=== PATIENT | male | born 1950 | race Caucasian/White ===

== ENCOUNTER 2016-11-23 17:39 | Inpatient (IN) | payer OTHER ==
[2016-11-23] VITALS (27 sets, daily range): BP systolic 93–128; BP diastolic 53–103
[~2016-11-23] VITALS: Ht 182.9 cm; Wt 97.6 kg
--- NOTE | ~2016-11-23 | HC ---
[facility] [place] [address] CONSULTATION Name: BELA PEREZ Room #: 447-P [facility] IN M.R.#: [id number] Admission: 11/23/16 Attend Phys: Seth Hayes DO Discharge: 11/26/16 Date of : 54 Report #: [id number] THIS REPORT FOR: //name// CC: MILI physician/PCP Seth Hayes DATE OF SERVICE: 11/23/2016 REASON FOR CONSULTATION: GI bleed. HISTORY OF PRESENT ILLNESS: The patient is a 66-year-old gentleman who presented to the Emergency Room for evaluation of hematemesis. He states he has vomited blood twice a day since Saturday. He denies rectal or abdominal pain. He states he has passed out a couple of times at home prior to presenting to the hospital. There has been no heartburn, dysphagia, or odynophagia. There has been no fever, chills, or sweats. He has had some melenic stools. The patient reports being diagnosed with non-Hodgkin's lymphoma on endoscopy. He states he was told he had a very large ulcer and that is how the diagnosis was made. The details of that workup are not available to me at this time. He apparently underwent endoscopy 3 weeks ago at the [facility]. He states he was told the ulcers were healing. He has undergone 6 chemotherapy treatments for the lymphoma. The last was about 2 weeks ago. PAST MEDICAL HISTORY: Diabetes mellitus; hypertension; renal cell carcinoma, status post nephrectomy; non-Hodgkin's lymphoma; port-A-Cath placement. ALLERGIES: None. MEDICATIONS: Metoprolol. Others are not available for review. The patient cannot recall the names. FAMILY HISTORY: Noncontributory. SOCIAL HISTORY: The patient denies tobacco or alcohol use. REVIEW OF SYSTEMS: No headaches. He has had some syncope as mentioned above. He has had some chest pain and shortness of breath. No dysuria, hematuria, or lower extremity edema. PHYSICAL EXAMINATION: GENERAL: The patient is awake and alert. He appears pale. He answers questions appropriately. VITAL SIGNS: Blood pressure 91/60, pulse is 130, respirations 18. He has been afebrile since admission. HEENT: The pupils . Extraocular movements are intact. No sclerous icterus or injection. [address] [address] CONSULTATION Name: BELA PEREZ Room #: 447-P [facility] IN M.R.#: [id number] Admission: 11/23/16 Attend Phys: Seth Hayes DO Discharge: 11/26/16 Date of : 54 Report #: [id number] CHEST: Clear to auscultation anteriorly. HEART: Exhibits tachycardia without murmur. No S3. ABDOMEN: Soft, active bowel sounds. No tenderness, distention, or hepatosplenomegaly. EXTREMITIES: Without significant edema. RECTAL: Not performed at this time. LABORATORY DATA: Hemoglobin on presentation was 6.0; MCV 88.8; white count 14,400. INR is 1.1. Lactate is 8.8, glucose 214, BUN 48, creatinine 1.2. fatty liver disease, possible steatohepatitis. IMPRESSION: 1. Acute upper gastrointestinal bleed. 2. Hypotension secondary to #1. 3. Anemia secondary to blood loss. 4. Non-Hodgkin's lymphoma involving the stomach. RECOMMENDATIONS: The patient has been transferred to the Intensive Care Unit. He is receiving packed red blood cells at this time. His blood pressure is actually improved as compared to the ER. I have recommended the patient undergo emergent upper endoscopy for further evaluation. I am hopeful we can at the minimum obtain a diagnosis. I informed the patient that it is often not possible to cauterize malignant tissue. This is simply not effective and can sometimes make matters worse. I explained to the patient that other options might include a mesenteric arteriography or possibly surgery. He understands and would like to proceed with endoscopy at this time. I have consulted Department of Anesthesia who have been kind enough to come in and help with this procedure. The patient has been started on a PPI drip. <ELECTRONICALLY SIGNED> By: William De Dios MD 11/28/16 1228 22 [id number] Juan Crowder MD /nt
--- NOTE | ~2016-11-23 | EKG ---
[address] [place] [address] ELECTROCARDIOGRAM REPORT Name: ZAC PEREZDEBRA Wilcox Room #: 447-P [facility] IN M.R.#: [id number] Admission: 11/23/16 Attend Phys: Seth Hayes DO Discharge: 11/26/16 Date of : 54 Report #: [id number] THIS REPORT FOR: //name// [facility] ED Test Date: 2016-11-23 Test Time: 17:31:22 Pat Name: BELA PEREZ Department: Room: [facility] Gender: M [employer]: PAULIE : 1950 Requested By: Juliette Rossi Order Number: [id number] MD: Keanu Burleson Measurements Intervals [place] Rate: 142 P: -39 [place]: 103 QRS: -16 QRSD: 85 T: 71 QT: 394 QTc: 606 Interpretive Statements Sinus tachycardia Nonspecific ST and T wave abnormality Borderline left axis deviation Low voltage, extremity leads Prolonged QT interval No previous ECG available for comparison Electronically Signed On 11-27-2016 9:13:06 CDT by Keanu Burleson [email or web address] <ELECTRONICALLY SIGNED> By: Keanu Burleson MD, [facility] 11/27/16 0913 1731 1731 Keanu Burleson MD, [facility] /EPI
--- NOTE | ~2016-11-23 | HC ---
[facility] [place] [address] CONSULTATION Name: BELA PEREZ Room #: 447-P [facility] IN M.R.#: [id number] Admission: 11/23/16 Attend Phys: Seth Hayes DO Discharge: Date of : 54 Report #: [id number] THIS REPORT FOR: //name// CC: [facility]I physician/PCP Seth Hayes DATE OF SERVICE: 11/23/2016 DATE OF SERVICE: 11/23/2016. REFERRING PROVIDER: Dr. Juan Crowder. REASON FOR CONSULTATION: Acute GI bleed. HISTORY OF PRESENT ILLNESS: The patient is a 66-year-old male with a history of non-Hodgkin's lymphoma diagnosed on endoscopy at the [facility], whereby he was seen to have a very large gastric antral ulcer. The patient has been treated with PPI therapy and has undergone 6 chemotherapy treatments for his lymphoma, the most recent of which was 2 weeks ago. Unfortunately, the patient has been having hematemesis twice daily for the past 3 days and has passed out at home on 2 prior occasions. As the patient has continued to have bloody vomitus and dark black stools, he presented to the emergency room for evaluation. The patient was found to have an extremely high lactic acid of 8.8 with a hemoglobin of 6.0 initially. The patient was admitted to the intensive care unit and given IV fluids and packed red blood cell transfusions and Dr. Crowder was asked to evaluate for the upper GI bleed. Upon performing an upper endoscopy, he attempted endoclip placement, epinephrine injection as well as bipolar cautery through the bed of a friable ulcerated lesion in the gastric antrum consistent with the patient's history of ulcerative lesion secondary to non-Hodgkin's lymphoma within the gastric wall. As such, I am being asked to evaluate along with Interventional Radiology for definitive management. PAST MEDICAL HISTORY: Diabetes mellitus, hypertension, renal cell carcinoma status post nephrectomy, non-Hodgkin's lymphoma on chemotherapy and port placement. HOME MEDICATIONS: Metoprolol, as well as others that he cannot recall the names of. ALLERGIES: No known drug allergies. FAMILY HISTORY: Reviewed and noncontributory. SOCIAL HISTORY: The patient denies tobacco, alcohol or illicit drug use. REVIEW OF SYSTEMS: [facility] [address] [place] [address] CONSULTATION Name: BELA PEREZ Room #: 447-P [facility] IN M.R.#: [id number] Admission: 11/23/16 Attend Phys: Seth Hayes DO Discharge: Date of : 54 Report #: [id number] GENERAL: The patient denies nocturnal fevers or chills. HEENT: No change in vision, change in hearing. NECK: No swelling or difficulty swallowing. HEART: No chest pain or palpitations. LUNGS: No cough or shortness of breath. ABDOMEN: No prior nausea or vomiting. GENITOURINARY: No dysuria or hematuria. ENDOCRINE: No polyuria, polydipsia. HEMATOLOGIC: No prior history of bleeding or easy bruising. EXTREMITIES: No history weakness or limited range of motion. NEUROLOGIC: Positive history of syncope and near syncopal episodes over the past week. EXTREMITIES: No history of weakness or limited range of motion. PSYCHIATRIC: No history of anxiety or depression. PHYSICAL EXAMINATION: VITAL SIGNS: Temperature 97.1, pulse 125, respirations 19, blood pressure 116/68. He stands 6 feet 0 inches tall and weighs 214 pounds. GENERAL: He is alert, in no acute distress, although he is somnolent as he recently received anesthesia for an EGD. HEENT: Normocephalic, atraumatic. Pupils equal, round, reactive to light. NECK: Supple, without lymphadenopathy. Trachea midline. HEART: Tachycardic, but regular rhythm, otherwise: Clear to auscultation bilaterally. ABDOMEN: Soft, nontender, nondistended. GENITOURINARY: Normal external male genitalia. EXTREMITIES: No clubbing, cyanosis or edema. NEUROLOGIC: Cranial nerves 2-12 are grossly intact. PSYCHIATRIC: Normal mood and affect. SKIN AND INTEGUMENT: No abnormal lesions or moles. LABORATORY AND X-RAY DATA: CBC shows white blood cell count of 16.5 thousand, hemoglobin 7.6, platelets 210,000. Creatinine is 1.0. INR 1.1, PTT 24.6. Lactic acid in the Emergency Room several hours ago was 8.8. ASSESSMENT AND PLAN: This 66-year-old male with a GI bleed secondary to gastric antral ulcer, which is most likely sequelae of his non-Hodgkin's lymphoma diagnosed on endoscopy recently. As the patient has an active bleed. Dr. Shelley of the Interventional Radiology service is going to perform emergent angiography with hopeful coil embolization of the bleeding vessel. I have discussed with Dr. Crowder and Dr. Shelley as well as evaluated the patient in detail, which took greater than 60 minutes this evening and we will proceed with Interventional Radiology therapy first and if his bleed is recalcitrant to that, we would then proceed to the operating room for exploratory laparotomy and definitive surgical management. All of the above was discussed with the patient in his pseudo-somnolent state and he agrees to proceed as outlined in this [facility] [address] [place] [address] CONSULTATION Name: BELA PEREZ Room #: 447-P [facility] IN M.R.#: [id number] Admission: 11/23/16 Attend Phys: Seth Hayes DO Discharge: Date of : 54 Report #: [id number] emergent situation. I sincerely appreciate this consult. I will follow along and leave any further recommendations in the patient's chart as appropriate. <ELECTRONICALLY SIGNED> By: Fan Fairbanks MD, FACS 11/25/16 1120 1232 1355 Fan Fairbanks MD, FACS /nt
--- NOTE | ~2016-11-23 | P ---
[facility] [place] [address] PROCEDURE REPORT Name: BELA PEREZ Room #: 447-P [facility] IN M.R.#: [id number] Admission: 11/23/16 Attend Phys: Seth Hayes DO Discharge: 11/26/16 Date of : 54 Report #: [id number] THIS REPORT FOR: //name// CC: [facility] physician/PCP Seth Hayes DATE OF SERVICE: 11/23/2016 PREOPERATIVE DIAGNOSIS: Acute upper gastrointestinal bleed. POSTOPERATIVE DIAGNOSIS: Bleeding gastric ulcer, nodular gastritis, and hiatal hernia. PROCEDURE: Upper endoscopy with endoclip placement, epinephrine injection and bipolar cautery. INDICATION: The patient is a 66-year-old gentleman who presents with three days of hematemesis. He came into the hospital hypotensive and tachycardic. He has been given packed cells and IV normal saline. His vital signs have stabilized. This procedure is being performed to help identify a source of bleeding. It should be noted that the patient has a history of gastric lymphoma and has undergone six courses of chemotherapy. The benefits and risks of the procedure were explained and informed written consent was obtained. The patient was placed in the side decubitus position. Propofol was provided per the department of anesthesia. The [employer] diagnostic scope was inserted through the mouth into the upper esophagus under direct vision. FINDINGS: The esophagus was normal without erythema, erosion or ulceration. There was reflux of blood and fluid into the esophagus. This was immediately suctioned. The stomach was entered and examined. Blood clots were noted in the fundus. The cardia was not well visualized. In the antrum, there was significant nodularity. There was also an approximately 1 x 1 cm ulcer. There was evidence of active bleeding at the site. The mucosa around this area appeared fairly smooth. The pylorus was traversed. The duodenal bulb and sweep were entered and examined. These were normal without erythema, erosion or ulceration. The scope was guided back into the stomach. It was decided to proceed with endoscopic therapy of the ulcer. An endoclip was advanced down the scope. This was placed adjacent to the bleeding site. A second endoclip was placed. Unfortunately, this did not grasp the tissue and was removed. At that point, a sclerotherapy catheter was advanced down the scope. Approximately 8 mL of 1:10,000 epinephrine solution were injected around the ulcer. A 10-Maori gold probe was utilized with the aid of a therapeutic scope which has been exchanged out for the diagnostic scope prior to the epinephrine injection. Multiple pulses of bipolar cautery were applied to the area of bleeding. [address] [address] PROCEDURE REPORT Name: BELA PEREZ Room #: 447-P [facility] IN M.R.#: [id number] Admission: 11/23/16 Attend Phys: Seth Hayes DO Discharge: 11/26/16 Date of : 54 Report #: [id number] Unfortunately, this did not result in cessation of bleeding. At that point, I felt it was not prudent to continue further endoscopic management. Bleeding was very slow upon completing the procedure. The scope was withdrawn. The patient tolerated the procedure well without apparent complications. IMPRESSION: 1. Normal esophagus. 2. Hiatal hernia. 3. Nodular gastritis with gastric antral ulcer. 4. Normal duodenum. RECOMMENDATIONS: The tissue is simply not responding as one would expect with cautery. Thus, residual neoplasm may be present in the form of lymphoma. I recommend the patient undergo emergent mesenteric arteriography. They have been consulted and I will speak with them on the phone this evening. I do not believe further attempts at endoscopic therapy would be useful here. General surgery will also be consulted. <ELECTRONICALLY SIGNED> By: William De Dios MD 11/28/16 1228 2105 0006 Juan Crowder MD /nt
--- NOTE | ~2016-11-23 | EKG ---
[address] [place] [address] ELECTROCARDIOGRAM REPORT Name: BELA PEREZ Room #: 447-P [facility] IN M.R.#: [id number] Admission: 11/23/16 Attend Phys: Seth Hayes DO Discharge: 11/26/16 Date of : 54 Report #: [id number] THIS REPORT FOR: //name// [facility] Test Date: 2016-11-24 Test Time: 16:05:06 Pat Name: BELA PEREZ Department: Room: 447 Gender: M [employer] Professor: brenda : 1950 Requested By: Seth Hayes Order Number: [id number] MD: Keanu Burleson Measurements Intervals [place] Rate: 98 P: 66 [place]: 163 QRS: -5 QRSD: 86 T: 50 QT: 378 QTc: 483 Interpretive Statements Sinus rhythm Borderline low voltage, extremity leads Borderline prolonged QT interval No previous ECG available for comparison Electronically Signed On 11-27-2016 12:36:24 CDT by Keanu Burleson [email or web address] <ELECTRONICALLY SIGNED> By: Keanu Burleson MD, [facility] 11/27/16 1236 1605 160 Keanu Burleson MD, [facility] /EPI
[2016-11-23 18:10] LABS: MCH 27.3 pg (26.0-34.0); MCHC 30.7 g/dL (28.0-37.0); MCV 88.8 fL (80.0-100.0); PLATELET COUNT 274 thou/uL (150-400); RBC 2.18 mil/uL (4.50-6.00); RDW 24.6 % (10.5-14.5); WBC 14.4 thou/uL (4.0-11.0)
[2016-11-23 18:11] LABS: MANUAL DIFF YES
[2016-11-23 18:13] LABS: HEMATOCRIT 19.4 % (42.0-52.0)
[2016-11-23 18:24] LABS: APTT 20.7 Seconds (24.5-32.8); INR 1.1; PROTIME 11.2 Seconds (9.3-11.4)
[2016-11-23 18:32] LABS: ABSOLUTE NEUTROPHILS 12.7 thou/uL (1.4-8.2); TOTAL CELL COUNT 100
[2016-11-23 18:33] LABS: ANISOCYTOSIS 2+; OVALOCYTES 1+; POLYCHROMASIA OCCASIONAL
[2016-11-23 18:34] LABS: ANION GAP 17 mmol/L (7-16); BUN 48 mg/dL (7-18); CALCIUM 8.4 mg/dL (8.5-10.1); CHLORIDE 109 mmol/L (98-107); CO2 17 mmol/L (21-32); CREATININE 1.2 mg/dL (0.7-1.3); GLUCOSE 214 mg/dL (74-106); POTASSIUM 4.2 mmol/L (3.5-5.1); SODIUM 143 mmol/L (136-145)
[2016-11-23 18:39] LABS: ALBUMIN 2.4 g/dL (3.4-5.0); ALKALINE PHOSPHATASE 55 U/L (46-116); DIRECT BILIRUBIN < 0.1 mg/dL (<0.1-0.3); SGOT 19 U/L (15-37); SGPT 25 U/L (30-65); TOTAL BILIRUBIN 0.4 mg/dL (<0.1-1.0); TOTAL PROTEIN 5.3 g/dL (6.4-8.2)
[2016-11-23 21:44] LABS: HEMATOCRIT 23.6 % (42.0-52.0); HEMOGLOBIN 7.6 gm/dL (14.0-18.0); MCH 27.8 pg (26.0-34.0); MCHC 32.3 g/dL (28.0-37.0); RBC 2.75 mil/uL (4.50-6.00); RDW 18.9 % (10.5-14.5); WBC 16.5 thou/uL (4.0-11.0)
[2016-11-23 21:47] LABS: CALCIUM 7.7 mg/dL (8.5-10.1); POTASSIUM 4.3 mmol/L (3.5-5.1)
[2016-11-23 21:54] LABS: APTT 24.6 Seconds (24.5-32.8); FIBRINOGEN 274.4 mg/dL (210-360); INR 1.1; PROTIME 11.4 Seconds (9.3-11.4)
[2016-11-24] VITALS (44 sets, daily range): BP systolic 82–121; BP diastolic 45–87
[2016-11-24 05:59] LABS: HEMOGLOBIN 6.9 gm/dL (14.0-18.0); RBC 2.45 mil/uL (4.50-6.00); RDW 18.9 % (10.5-14.5)
[2016-11-24 06:00] LABS: MCHC 32.6 g/dL (28.0-37.0); PLATELET COUNT 192 thou/uL (150-400); WBC 14.6 thou/uL (4.0-11.0)
[2016-11-24 06:30] LABS: CALCIUM 7.8 mg/dL (8.5-10.1); CREATININE 0.8 mg/dL (0.7-1.3); POTASSIUM 4.1 mmol/L (3.5-5.1)
[2016-11-24 06:34] LABS: MANUAL DIFF YES
[2016-11-24] MEDS ORDERED: IMDUR 60 MG TAB60 M1 PO (10:06)
[2016-11-24] MEDS ORDERED: ASPIR 8181 MG PO (10:06)
[2016-11-24] MEDS ORDERED: LEVOTHYROXIN0.025 MG PO (10:07)
[2016-11-24] MEDS ORDERED: VIREAD300 MG PO (10:08)
[2016-11-24] MEDS ORDERED: LOPRESSOR25 PO (10:09)
[2016-11-24] MEDS ORDERED: NITROSTAT0.4 M1 SL (10:11)
[2016-11-24] MEDS ORDERED: ONDANSETRON HCL4 M2 PO (10:12)
[2016-11-24] MEDS ORDERED: VITAMIN D1000 UNI1 PO (10:13)
[2016-11-24] MEDS ORDERED: ONGLYZA5 MG PO (10:13)
[2016-11-24] MEDS ORDERED: PROTONIX40 M1 PO (10:14)
[2016-11-24 10:35] LABS: ABSOLUTE NEUTROPHILS 13.6 thou/uL (1.4-8.2); METAMYELOCYTES 1 %; TOTAL CELL COUNT 100
[2016-11-24 10:36] LABS: ANISOCYTOSIS 2+; OVALOCYTES 1+; POLYCHROMASIA SLIGHT
[2016-11-24 10:37] LABS: MACROCYTES 1+; MICROCYTES 1+
[2016-11-24 15:58] LABS: HEMOGLOBIN 7.6 gm/dL (14.0-18.0)
[2016-11-25] VITALS (22 sets, daily range): BP systolic 76–133; BP diastolic 33–80
[2016-11-25 00:12] LABS: HEMATOCRIT 21.6 % (42.0-52.0); HEMOGLOBIN 7.4 gm/dL (14.0-18.0)
[2016-11-25 08:03] LABS: HEMATOCRIT 22.3 % (42.0-52.0); HEMOGLOBIN 7.5 gm/dL (14.0-18.0)
[2016-11-25 16:15] LABS: HEMATOCRIT 21.9 % (42.0-52.0); HEMOGLOBIN 7.3 gm/dL (14.0-18.0)
[2016-11-26 01:03] LABS: HEMATOCRIT 22.1 % (42.0-52.0); HEMOGLOBIN 7.4 gm/dL (14.0-18.0)
[2016-11-26 04:20] VITALS: BP 81/49
[2016-11-26 08:00] VITALS: BP 110/75
[2016-11-26] MEDS ORDERED: IRON325 PO (08:37)
[2016-11-26 09:50] LABS: HEMATOCRIT 22.3 % (42.0-52.0); HEMOGLOBIN 7.6 gm/dL (14.0-18.0)
[2016-11-26 10:12] VITALS: BP 113/68; BP 131/80
[2016-11-26 13:56] VITALS: BP 110/75
== END 2016-11-26 14:50 | disposition home or self-care (01) | DRG 981 ==
LOC: ER 17:39 → 4S 18:52 → EROBS 18:52 → ICU 19:31 → 4S 11-25 10:13
PROVIDERS: Emergency Medicine; Family Medicine; Internal Medicine Gastroenterology
PROC: 3E0G8GC Introduction of Other Therapeutic Substance into Upper GI, Via Natural or Artificial Opening Endoscopic (ICD-10-PCS; principal; 2016-11-23)
PROC: 04V23DZ Restriction of Gastric Artery with Intraluminal Device, Percutaneous Approach (ICD-10-PCS; 2016-11-23)
PROC: 30233N1 Transfusion of Nonautologous Red Blood Cells into Peripheral Vein, Percutaneous Approach (ICD-10-PCS; 2016-11-23)
DX: K25.0 Acute gastric ulcer with hemorrhage (principal); N17.0 Acute kidney failure with tubular necrosis; C85.90 Non-Hodgkin lymphoma, unspecified, unspecified site; D62 Acute posthemorrhagic anemia; I95.9 Hypotension, unspecified; I10 Essential (primary) hypertension; E11.9 Type 2 diabetes mellitus without complications; K29.60 Other gastritis without bleeding; K44.9 Diaphragmatic hernia without obstruction or gangrene; Z86.73 Personal history of transient ischemic attack (TIA), and cerebral infarction without residual deficits; Z87.891 Personal history of nicotine dependence; Z90.5 Acquired absence of kidney
CPT/HCPCS: 10078; 10100; 62110